=== PATIENT | female | born 1975 | race Caucasian/White ===

== ENCOUNTER 2021-10-29 06:16 | Inpatient (IN) ==
[2021-10-29] MEDS ORDERED: CeFAZolin Syr 2,000MG/20 ML 2,000 MG/20 ML SYRINGE IVPB ONE (06:35)
[2021-10-29] MEDS ORDERED: Ringers Solution, Lactated 1,000 ML IVC SCH ×2 (06:45→13:18)
[2021-10-29 07:10] LABS: Basophils % 0.4 %; Eosinophils # 0.1 K/mcL (0.0-0.6); Eosinophils % 0.9 %; Hematocrit 35.3 % (35.3-44.9); Hemoglobin 11.4 g/dL (11.5-15.4); Immature Granulocytes % 0.6 % (0-4); Lymphocytes # 1.3 K/mcL (0.6-4.6); Lymphocytes % 16.8 %; Mean Corpuscular HGB Conc 32.3 g/dL (31.6-35.5); Mean Corpuscular Hemoglobin 30.1 pg (28.0-33.3); Mean Corpuscular Volume 93.1 fL (83.0-100.0); Mean Platelet Volume 9.7 fL (9.4-12.4); Monocytes # 0.6 K/mcL (0.0-1.3); Monocytes % 7.6 %; Neutrophils # 5.9 K/mcL (1.6-8.9); Platelet Count 347 K/mcL (140-400); Red Blood Count 3.79 M/mcL (3.82-4.97); Red Cell Distribution Width 13.2 % (11.5-14.5); Segmented Neutrophils % 73.7 %; White Blood Count 7.9 K/mcL (4.3-11.1)
[2021-10-29] MEDS ORDERED: *HR* FentaNYL (PF) 100 MCG/2 ML VIAL ONE ×2 (07:12→09:47)
[2021-10-29] MEDS ORDERED: *HR* Midazolam HCl 2 MG/2 ML VIAL ONE (07:12)
[2021-10-29] MEDS ORDERED: *HR* Rocuronium Bromide 50 MG/5 ML VIAL ONE (07:13)
[2021-10-29] MEDS ORDERED: *HR* Propofol 200 MG/20 ML VIAL IVP ONE (07:13)
[2021-10-29] MEDS ORDERED: Lidocaine -MPF 2% 2 ML VIAL ONE (07:13)
[2021-10-29] MEDS ORDERED: *HR* Magnesium Sulfate 1 GM/2 ML VIAL ONE (07:16)
[2021-10-29] MEDS ORDERED: Ketamine HCL *QUVA* 50mg (1mL) SYRINGE ONE (07:17)
[2021-10-29] MEDS ORDERED: Dexmedetomidine HCl 400 MCG/100 ML MLS IVC ONE (07:21)
[2021-10-29] MEDS ORDERED: Promethazine 6.25 MG in Water for inj. (sterile) 20 ML IVPB PRN (07:38)
[2021-10-29] MEDS ORDERED: *HR* Labetalol 20 MG/4 ML SYRINGE IVP PRN (07:38)
[2021-10-29] MEDS ORDERED: Acetaminophen IV 1,000 MG/100 ML BAG IVPB PRN (07:38)
[2021-10-29] MEDS ORDERED: Ketorolac 30 MG/ML VIAL IVP PRN (07:38)
[2021-10-29] MEDS ORDERED: *HR* OxyCODONE Immed Rel 5 MG TABLET PO PRN ×2 (07:38→13:18)
[2021-10-29] MEDS ORDERED: Ondansetron 4 MG/2 ML VIAL IVP PRN ×2 (07:38→13:18)
[2021-10-29] MEDS ORDERED: *HR* HYDROmorphone PF 0.5 MG/0.5 ML SYRINGE IVP PRN (07:38)
[2021-10-29] MEDS ORDERED: Ipratropium Neb 0.5 MG NEBULIZER IH PRN (07:38)
[2021-10-29] MEDS ORDERED: Albuterol 2.5 MG/3 ML NEBULIZER IH PRN (07:38)
[2021-10-29] MEDS ORDERED: Acetaminophen IV 1,000 MG/100 ML BAG IVPB ONE (08:11)
[2021-10-29] MEDS ORDERED: Ketorolac 30 MG/ML VIAL ONE (08:23)
[2021-10-29] MEDS ORDERED: Ondansetron 4 MG/2 ML VIAL ONE (08:23)
[2021-10-29] MEDS ORDERED: Neostigmine Methylsulfate 3 MG/3 ML SYRINGE ONE (09:48)
[2021-10-29] MEDS ORDERED: Scopolamine Patch 1.5 MG PATCH.TD72 ONE (10:10)
[2021-10-29] MEDS ORDERED: Insulin Human Regular 5 UNIT in 0.9 % Sodium Chloride 10 ML IV ONE (10:42)
[2021-10-29] MEDS ORDERED: *HR* Dextrose 50 % in Water (Syg) 50 ML SYRINGE IVP PRN ×2 (11:01→14:14)
[2021-10-29] MEDS ORDERED: Dextrose Gel 15 GM/37.5 ML TUBE PO PRN ×4 (11:01→14:14)
[2021-10-29] MEDS ORDERED: D5% in Water 1,000 ML IVC PRN ×2 (11:01→14:14)
[2021-10-29] MEDS ORDERED: Insulin LISPRO 300 UNITS/3 ML VIAL SUBQ SCH ×4 (11:30→16:30)
[2021-10-29] MEDS ORDERED: *HR* Labetalol 20 MG/4 ML SYRINGE IVP ONE ×2 (12:27→14:14)
[2021-10-29] MEDS ORDERED: Naloxone 0.4 MG/ML INJ IVP PRN (13:18)
[2021-10-29] MEDS ORDERED: NIFEdipine XL (24 HR) 30 MG TAB.ER.24 PO SCH (14:15)
[2021-10-29] MEDS: *HR* HYDROcodone/Acet 5/325 mg TABLET PO PRN ×2 (14:27→20:20)
[2021-10-29] MEDS: Insulin LISPRO 300 UNITS/3 ML VIAL SUBQ SCH ×2 (14:56→18:24)
[2021-10-29] MEDS: Insulin DETEMIR 100 UNIT/ML X5UNITS SUBQ SCH (15:36)
[2021-10-29] MEDS: NIFEdipine XL (24 HR) 30 MG TAB.ER.24 PO SCH (20:19)
[2021-10-29] MEDS: *HR* Metformin 500 MG TABLET PO SCH (20:19)
[2021-10-29] MEDS: *HR* Glimepiride 4 MG TABLET PO SCH (20:19)
[2021-10-29] MEDS ORDERED: Insulin DETEMIR 100 UNIT/ML X5UNITS SUBQ SCH ×2 (21:00)
[2021-10-30] MEDS: Insulin LISPRO 300 UNITS/3 ML VIAL SUBQ SCH (08:16)
[2021-10-30] MEDS ORDERED: lisinopriL 5 MG TABLET PO SCH (09:00)
[2021-10-30] MEDS ORDERED: *HR* Pioglitazone 15 MG TABLET PO SCH (09:00)
[2021-10-30] MEDS ORDERED: Gabapentin 100 MG CAPSULE PO SCH (09:00)
[2021-10-30] MEDS: *HR* HYDROcodone/Acet 5/325 mg TABLET PO PRN (09:05)
[2021-10-30] MEDS: NIFEdipine XL (24 HR) 30 MG TAB.ER.24 PO SCH (09:05)
[2021-10-30] MEDS: Insulin DETEMIR 100 UNIT/ML X5UNITS SUBQ SCH (09:06)
[2021-10-30] MEDS: *HR* Metformin 500 MG TABLET PO SCH (09:29)
[2021-10-30] MEDS: *HR* Glimepiride 4 MG TABLET PO SCH (09:29)
[2021-10-30 10:04] VITALS: BP 136/84; PULSE 111; TEMP 98.9; O2SAT 95
[2021-11-02] MEDS ORDERED: Ergocalciferol (VIT D2) 50,000 UNIT (1.25MG) CAP PO SCH (09:00)
== END 2021-10-30 14:27 | disposition home or self-care (01) | DRG 743 ==
LOC: SAMDAY 06:16 → 1NENUOBS 12:26
PROVIDERS: ADMIT Student in an Organized Health Care Education/Training Program; ATTEND Student in an Organized Health Care Education/Training Program